=== PATIENT | female | born 1995 | race American Indian/Alaskan Native ===

== ENCOUNTER 2017-06-14 00:13 | Emergency (ER) | payer MEDICAID ==
--- NOTE | 2017-06-14 01:36 | EDM.PDOC ---
ED HPI GENERAL MEDICAL PROBLEM - General Chief Complaint: [employer]ISTANT Problem Stated Complaint: 16 WEEKS PREG WITH CRAMPING/BLEEDING Time Seen by Provider: 06/14/17 01:34 Source of Information: Reports: Patient, Old Records, RN Notes Reviewed History Limitations: Reports: No Limitations - History of Present Illness INITIAL COMMENTS - FREE TEXT/NARRATIVE: 22-year-old female presents emergency department day complaint of vaginal bleeding, she has had one event of vaginal bleeding of which streaking was noted on the toilet paper no big gush of fluid denies any cramping or abdominal pain she is estimated 16 weeks and 2/7 intrauterine was last evaluated by her OB provider this week she is a 4 para 2 - Related Data Allergies Allergy/AdvReac Type Severity Reaction Status Date / Time No Known Allergies Allergy Verified 06/14/17 00:44 Home Meds: Home Meds Vits #93/Iron Fum/FA [ Formula Tablet] 1 tab PO DAILY 06/14/17 [History] 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 , Psychiatric History: Reports: Addiction Social & Family History - Tobacco Use Smoking Status *Q: Current Every Day Smoker Years of Tobacco use: 5 Packs/Tins Daily: 0.1 - Caffeine Use Caffeine Use: Reports: Coffee - Recreational Drug Use Recreational Drug Type: Reports: Methamphetamine Recreational Drug Use Frequency: Not Used In Over 1 Month ED ROS GENERAL - Review of Systems Review Of Systems: See Below Respiratory: Reports: No Symptoms Cardiovascular: Reports: No Symptoms GI/Abdominal: Reports: No Symptoms : Reports: Irregular Menses ED EXAM - Physical Exam Exam: See Below Exam Limited By: No Limitations General Appearance: Alert, WD/WN, No Apparent Distress Respiratory/Chest: No Respiratory Distress GI/Abdominal Exam: Soft, Non-Tender Fundal Height In cm: 17 (Female) Exam: Normal External Exam, Normal Speculum Exam, Enlarged Uterus. No: Cervical Dilatation, Cervical Discharge, Cervical Fluid, Cervical Lesions, Cervix Motion Tenderness, Products of Conception, Vaginal Bleeding, Vaginal Discharge Heart Tones: Present Heart Tones per Min: 150 Course - Vital Signs Last Recorded V/S: Last Vital Signs Temp 97.7 F 06/14/17 00:47 Pulse 79 06/14/17 00:47 Resp 16 06/14/17 00:47 BP 100/56 L 06/14/17 00:47 Pulse Ox 99 10/28/17 00:47 - Orders/Labs/Meds Orders: Active Orders 24 hr Category Date Time Status OB Ltd 1 or More Fetus [US] Stat Exams 06/14/17 01:25 Taken Labs: Laboratory Tests 06/14/17 06/14/17 06/14/17 Range/Units 00:56 01:33 01:33 WBC 12.0 H (4.5-11.0) K/uL RBC 3.55 (3.30-5.50) M/uL Hgb 11.0 L (12.0-15.0) g/dL Hct 31.9 L (36.0-48.0) % MCV 90 (80-98) fL MCH 31 (27-31) pg MCHC 35 (32-36) % Plt Count 283 (150-400) K/uL Neut % (Auto) 70 H (36-66) % Lymph % (Auto) 21 L (24-44) % [place] % (Auto) 7 H (2-6) % Eos % (Auto) 2 (2-4) % Baso % (Auto) 0 (0-1) % HCG, Quant 21314 H (0-6) mIU/mL Urine Color Yellow Urine Appearance Slightly cloudy Urine pH 6.0 (4.5-8.0) Ur Specific [place] 1.015 (1.008-1.030) Urine Protein Negative (NEGATIVE) mg/dL Urine Glucose (UA) Normal (NEGATIVE) mg/dL Urine Ketones Negative (NEGATIVE) mg/dL Urine Occult Blood Moderate (NEGATIVE) Urine Nitrite Negative (NEGATIVE) Urine Bilirubin Negative (NEGATIVE) Urine Urobilinogen Normal (NORMAL) mg/dL Ur Leukocyte Esterase Small (NEGATIVE) Urine RBC 0-5 (0-5) Urine WBC 5-10 H (0-5) Ur Epithelial Cells Few Amorphous Sediment Not seen Urine Bacteria Few Urine Mucus Few Departure - Departure Time of Disposition: 03:24 Disposition: Home, Self-Care 01 Condition: Good Clinical Impression: Placenta previa antepartum in first trimester - Discharge Information Referrals: PCP,None [Primary Care Provider] - Forms: ED Department Discharge Additional Instructions: Please keep your follow-up appointment with your OB provider next week call return to the emergency department worsening of symptoms - My Orders Last 24 Hours: My Active Orders 06/14/17 01:25 OB Ltd 1 or More Fetus [US] Stat - Assessment/Plan Last 24 Hours: My Active Orders 06/14/17 01:25 OB Ltd 1 or More Fetus [US] Stat Plan: Assessment Acuity = acute Site and laterality = placenta previa at 16 weeks and 2/7 days Etiology = unclear etiology Manifestations = intermittent vaginal bleeding Location of injury = Home Lab values = CBC within normal limits beta-hCG 35,800 ultrasound demonstrates placenta previa Plan She has a follow-up appointment with her [employer]ISTANT provider next week for management and care Patient was in agreement with the plan all questions were answered, they were instructed to return to the emergency department or call for worsening symptoms. This note was dictated using [employer] voice recognition software please call with any questions.
== END 2017-06-14 04:03 | disposition home or self-care (01) ==
LOC: JP.ED 00:13
DX: O44.12 Complete placenta previa with hemorrhage, second trimester (principal); O99.332 Smoking (tobacco) complicating pregnancy, second trimester; F17.210 Nicotine dependence, cigarettes, uncomplicated; Z3A.16 16 weeks gestation of pregnancy
CPT/HCPCS: 36415; 76815; 81001; 84702; 85025; 99284-25